=== PATIENT | male | born 1960 | race Caucasian/White ===

== ENCOUNTER → 2020-05-25 | Emergency (ER) | END | disposition home or self-care (01) | LOC: M ED 09:23 | DX: Z53.9 Procedure and treatment not carried out, unspecified reason (principal) ==

== ENCOUNTER → 2022-09-04 | Outpatient (CLI) | payer SELFPAY | LOC: M SLEEP 13:39 | DX: Z53.21 Procedure and treatment not carried out due to patient leaving prior to being seen by health care provider (principal) ==